=== PATIENT | female | born 1975 | race American Indian/Alaskan Native ===

== ENCOUNTER 2016-06-28 12:30 | Outpatient (CLI) | payer OTHER ==
--- NOTE | 2016-06-29 07:58 | Vascular Lab Report ---
LOWER EXTREMITY VENOUS DUPLEX: REASON FOR EXAM: Bilateral edema. COMMENTS ON THE RIGHT: All veins visualized are freely compressible without evidence of internal echogenicity. Flow is spontaneous and phasic throughout. COMMENTS ON THE LEFT: Deep venous thrombosis is noted in the calf veins extending into the above-knee popliteal vein. The remaining veins visualized are freely compressible without evidence of internal echogenicity. Spontaneous and phasic flow is present proximally. IMPRESSION: Deep venous thrombosis in the left lower extremity
== END 2016-06-28 12:31 | disposition home or self-care (01) ==
LOC: VAS 12:30
PROVIDERS: ATTEND Internal Medicine
DX: I82.4Z2 Acute embolism and thrombosis of unspecified deep veins of left distal lower extremity (principal); R60.0 Localized edema
CPT/HCPCS: 93970

== ENCOUNTER 2016-06-28 14:22 | Outpatient (CLI) | payer OTHER ==
[2016-06-28] MEDS ORDERED: NACL ONE (14:47)
--- NOTE | 2016-06-28 15:09 | Cat Scan Report ---
CTA chest: History: Pulmonary embolism, shortness of breath. Findings: No evidence of aortic aneurysm or pulmonary embolism. No pleural pericardial effusion. No mediastinal mass. Normal lung parenchyma. No discrete nodularity or consolidation. Impression: No evidence of pulmonary embolism. No acute lung changes.
== END 2016-06-28 14:23 | disposition home or self-care (01) ==
LOC: CT 14:22
PROVIDERS: ATTEND Internal Medicine
DX: I26.99 Other pulmonary embolism without acute cor pulmonale (principal); R06.02 Shortness of breath
CPT/HCPCS: 71275; Q9967